=== PATIENT | male | born 1980 | race Caucasian/White ===

== ENCOUNTER 2020-01-02 09:34 | Day surgery (SDC) | payer OTHER ==
--- NOTE | 2019-12-28 10:53 | RADIOLOGY REPORT (SQ) ---
EXAM DESCRIPTION: CHEST PA/LATERAL IMAGES COMPLETED DATE/TIME: 12/28/2019 10:31 am REASON FOR STUDY: PRE OP COMPARISON: None. EXAM PARAMETERS: NUMBER OF VIEWS: two views TECHNIQUE: Digital Frontal and Lateral radiographic views of the chest acquired. RADIATION DOSE: NA LIMITATIONS: none FINDINGS: LUNGS AND PLEURA: No opacities, masses or pneumothorax. No pleural effusion. MEDIASTINUM AND HILAR STRUCTURES: No masses or contour abnormalities. HEART AND VASCULAR STRUCTURES: Heart normal size. No evidence for failure. BONES: No acute findings. HARDWARE: None in the chest. OTHER: No other significant finding. IMPRESSION: NO SIGNIFICANT RADIOGRAPHIC FINDING IN THE CHEST. TECHNICAL DOCUMENTATION: JOB ID: [id number] [employer]- All Rights Reserved Reading location - IP/workstation name: [email or web address]
[2019-12-28 11:16] LABS: HEMATOCRIT 48.3 % (37.9-51.0); HEMOGLOBIN 16.9 g/dL (13.5-17.0); MEAN CORPUSCULAR HEMOGLOBIN 33.8 pg (27.0-33.4); MEAN CORPUSCULAR HGB CONC 34.9 g/dL (32.0-36.0); MEAN CORPUSCULAR VOLUME 97 fl (80-97); PLATELET COUNT 140 10^3/uL (150-450); RED BLOOD COUNT 4.98 10^6/uL (4.35-5.55); RED CELL DISTRIBUTION WIDTH 14.3 % (11.5-14.0); WHITE BLOOD COUNT 7.6 10^3/uL (4.0-10.5)
[~2020-01-02 09:34] MED LIST: ACETAMINOPHEN 325 MG TABLET PO PRN; CEFAZOLIN 1 GM/D5W RTU 1 GM/50 ML RTUPB IV PRN; LACTATED RINGERS 1000 ML IV PRN
[2020-01-02] MEDS ORDERED: CEFAZOLIN 1 GM/D5W RTU 1 GM/50 ML RTUPB IV ONE (09:40)
[2020-01-02] MEDS ORDERED: NEOSTIGMINE METHYLSULFATE 10 MG/10 ML VIAL ONE (09:47)
[2020-01-02] MEDS ORDERED: GLYCOPYRROLATE 1 MG/5 ML VIAL ONE (09:47)
[2020-01-02] MEDS ORDERED: FENTANYL CITRATE INJ/PF 250 MCG/5 ML AMPULE ONE (12:14)
[2020-01-02] MEDS ORDERED: MIDAZOLAM 2 MG/2 ML INJ ONE (12:14)
[2020-01-02] MEDS ORDERED: PROPOFOL INJ 200 MG/20 ML VIAL IV ONE (12:15)
[2020-01-02] MEDS ORDERED: ROPIVACAINE HCL 0.5% INJ/PF (5 MG/1 ML) 30 ML SDV ONE (12:17)
[2020-01-02] MEDS ORDERED: BUPIVACAINE INJ/PF LIPOSOME/PF 266 MG/20 ML SDV ONE (12:18)
[2020-01-02] MEDS ORDERED: BUPIVACAINE HCL 0.25 % INJ/PF (2.5 MG/1 ML) 30 ML VIAL ONE (12:18)
[2020-01-02] MEDS ORDERED: MEPERIDINE HCL/PF INJ 25 MG/1 ML DISP.SYRIN IV PRN (13:30)
[2020-01-02] MEDS ORDERED: FENTANYL CITRATE INJ/PF 100 MCG/2 ML AMPUL IV PRN ×3 (13:30)
[2020-01-02] MEDS ORDERED: DIPHENHYDRAMINE HCL 50 MG/ML VIAL IV PRN (13:30)
[2020-01-02] MEDS ORDERED: OXYCODONE-ACETAMINOPHEN 5-325 MG TABLET PO PRN ×2 (13:30)
[2020-01-02] MEDS ORDERED: PROMETHAZINE HCL INJ 25 MG/1 ML VIAL IV PRN ×2 (13:30)
--- NOTE | 2020-01-02 14:15 | Discharge Summary ---
Discharge Summary (SDC) - Discharge Final Diagnosis: Left inguinal hernia Date of Surgery: 01/02/20 Discharge Date: 01/02/20 Condition: Good Forms: ASU Anesthesia D/C Instruction, Discharge POC-Surgical Service Treatment or Instructions: [facility] [address], [place] [address] Discharge Instructions: Open Abdominal Procedures (Hernia, Bowel Surgery) 1.General Information: a. DO NOT DRIVE a car or operative machinery for 1 week. b. DO NOT consume alcohol, tranquilizers, sleeping medication, or any non- prescribed medication for 24 hours unless approved by your doctor or as long as taking pain medication. c. DO NOT make important decisions or sign any important papers for the first 24 hours after surgery. d. When discharged home the same day as surgery have a responsible person with you the first night. 2.Activity Restriction: 6 weeks, a. Avoid heavy lifting (> 10-15 lbs), straining abdominal muscles and sports, mowing lawn, vacuum water filter cleaner and bending over a lot. b. Walking is important to avoid blood clots in the legs and deep breathing can prevent pneumonia. c. If it fine to go for walks, up and down steps, and ride in a car. 3.Treatment: a. You may shower the day after surgery and shower then daily is fine, but you should not bathe in a tub or go swimming for 2 weeks. b. The skin glue will peel off on its own. You may cover the incision with gauze and tape if it is more comfortable. c. Do not use oils, powders, or lotion on your incision. 4.Medications: a. You may take prescription tablets for pain if needed, one every 6 hours (_Toradol_). b. Do not take additional NSAIDs with Toradol. You may take Tylenol. c. You may resume all normal medications unless a change is specified by your doctors. d. 5.Diet: a. If going home the same day as surgery start with clear liquids, and if you do well then advance to normal foods low inf fat and protein. Smaller portion size may be campbell the first night. b. When discharged after hospital stay you may resume a normal diet. 6.Notify Physician If: a. Pain is not relieved by pain medication b. Persistent nausea and vomiting c. Chills, fever (above 101) d. Persistent bleeding or swelling at the operative site e. Unable to urinate for 6-8 hours f. Increased redness, drainage, or foul smelling discharge from incision 7. Follow Up Care: a. Please call our office to schedule an appointment with your doctor for 2 weeks. In the event of any postoperative problems or questions you may call our office during business hours or the On-Call surgeon through the lathe scalper operator at [facility]. [facility] [phone] [facility] [phone] (Ask for the surgeon tenant relations coordinator) b. I understand the instructions for my postoperative care as described above and a copy has been given to me. Witness Patient/Significant Other Date Prescriptions: Ketorolac Tromethamine [Toradol 10 mg Tablet] 10 mg PO Q6HP PRN #20 tablet PRN Reason: Referrals: SEFERINO KEATING MD [ACTIVE STAFF] - 01/14/20 9:15 am Discharge Diet: As Tolerated Discharge Activity: Balance Activity w/Rest, No Lifting Over 10 Pounds, No Lifting/Push/Pulling, Walk Frequently Report the Following to Your Physician Immediately: Increase in Pain, Fever over 101 Degrees, Unusual Bleeding, Redness, Swelling, Warmth, Increased Soreness, Drainage-Foul Smelling, Large Clots, Numbness
--- NOTE | 2020-01-02 14:18 | Operative Report ---
Operative Report DATE OF SURGERY: 01/02/20 PREOPERATIVE DIAGNOSIS: 1. Left inguinal hernia. 2. Smoker POSTOPERATIVE DIAGNOSIS: Same with small direct inguinal hernia OPERATION: 1. Left inguinal exploration with left inguinal herniorrhaphy using medium Bard plug and overlay mesh repair. 2. Excision of left cord lipoma SURGEON: SEFERINO BE 1ST SAFETY LAMP KEEPER: NINO SHEEHAN ANESTHESIA: GA TISSUE REMOVED OR ALTERED: Hernia sac; cord lipoma COMPLICATIONS: None ESTIMATED BLOOD LOSS: Scant INTRAOPERATIVE FINDINGS: Below PROCEDURE: The patient was seen in the preop holding area the left inguinal area was marked by Dr. Be. The patient was taken to the operating room where general anesthesia was induced. The patient underwent TAP abdominal wall block with long-acting local anesthetic. The left inguinal area, scrotum were then prepped and draped in sterile fashion with Betadine. Surgical plan and surgical timeout were conducted. Markings were made on the skin for appropriate left inguinal herniorrhaphy. Skin was anesthetized with quarter percent Marcaine, 8 cc. A 6 cm standard left inguinal herniorrhaphy incision made with a knife. Subcutaneous tissue divided electrocautery. The predictable well small veins were ligated and divided. The Magaly's fascia was divided, and external oblique aponeurosis tissue anesthetized with quarter percent Marcaine. The external oblique was opened along the direction of its fibers. Superior and inferior fascial flaps were elevated. Contents of the inguinal canal carefully examined. Of note throughout the entire dissection the left ilioinguinal, and genitofemoral nerves were identified and preserved. Bluntly we got around the cord structures which were looped with a Seb drain. We interrogated the contents therein and found a large left cord lipoma, and a moderate sized inguinal hernia sac. The hernia sac was carefully dissected from surrounding structures using sharp and electrocautery dissection. The hernia sac was taken all the way to its point of origin, the internal inguinal ring was opened and found to communicate with the peritoneal cavity freely. The sac was twisted, and ligated at its base with a 2-0 Vicryl suture and amputated and sent to pathology. The cord lipoma was excised from surrounding structures with electrocautery, then ligated at its base with a 2-0 Vicryl suture and sent off to pathology. We fully examine the floor the inguinal canal and identified a small 1-1/2 to 2 cm direct hernia with some prolapsing fat. The prolapsing fat was tucked into the retroperitoneal space, and the for the inguinal canal was closed over this wall defect with a single interrupted 2-0 Vicryl suture. We now brought onto the field a Bard plug and overlay mesh, not , size medium. The plug was inserted into the dentulous internal inguinal ring just fe el to the inferior epigastric vessels. The mesh was sewed to the floor the inguinal canal and conjoined tendon with a 0 PDS suture. We now brought onto the field the overlay mesh trimmed to the appropriate configuration, and sewed it to Poupart's ligament and the conjoined tendon with approximately 8 interrupted 0 EDS sutures. We were careful to bring the to leaves together laterally, re-creating a new internal ring that was not too tight. We inspected the repair and felt that it was sound. The external oblique aponeurosis was closed with a running 2-0 Vicryl suture, Magaly's fascia with 2- 0 Vicryl skin with 3-0 Vicryl. Skin glue was applied to the operative incision and the remaining 12 cc of Marcaine used to anesthetize the subcutaneous tissue. Patient tolerated the procedure well, extubated, taken recovery room in stable condition.
[2020-01-02] MEDS: FENTANYL CITRATE INJ/PF 100 MCG/2 ML AMPUL ONE ×2 (14:30→14:35)
[2020-01-02] MEDS ORDERED: KETOROLAC TROMETHAMINE INJ/PF 30 MG/1 ML SDV IV PRN (14:47)
[2020-01-02] MEDS ORDERED: KETOROLAC TROMETHAMINE INJ/PF 30 MG/1 ML SDV ONE (15:00)
[2020-01-02 16:14] VITALS: BP 130/81
== END 2020-01-02 16:01 | disposition home or self-care (01) ==
LOC: OROUT 09:34
PROVIDERS: ATTEND Surgery
DX: K40.90 Unilateral inguinal hernia, without obstruction or gangrene, not specified as recurrent (principal); D17.6 Benign lipomatous neoplasm of spermatic cord; I10 Essential (primary) hypertension; F17.210 Nicotine dependence, cigarettes, uncomplicated; Z79.899 Other long term (current) drug therapy; Z03.818 Encounter for observation for suspected exposure to other biological agents ruled out
CPT/HCPCS: 36415; 85027; 87635; 88304 ×2; 71046; 49505; 55520; C1781; J2795; J2250; J0690; J3010 ×2; J1885; J2710; J2704; J3490; C9803; 830; C9290